=== PATIENT | female | born 1970 | race Two or more races ===

== ENCOUNTER 2020-05-25 05:31 | Emergency (ER) | payer MEDICAID ==
[~2020-05-25] VITALS: Ht 157.5 cm; Wt 147.4 kg
[2020-05-25 05:46] VITALS: BP 176/74
--- NOTE | 2020-05-25 07:26 | Diagnostic Imaging Report ---
EXAM: CT Head Without Intravenous Contrast CLINICAL HISTORY: TRAUMA TECHNIQUE: Axial computed tomography images of the head/brain without intravenous contrast. CTDI is 53.40 mGy and DLP is 1072.20 mGy-cm. One or more of the following dose reduction techniques were used: automated exposure control, adjustment of the mA and/or kV according to patient size, use of iterative reconstruction technique. COMPARISON: No relevant prior studies available. FINDINGS: Brain: No acute hemorrhage or mass effect. A few punctate calcifications in the basal ganglia and right periventricular white matter, likely chronic. Ventricles: Unremarkable. No ventriculomegaly. Bones/joints: Unremarkable. No acute fracture. Soft tissues: Soft tissue laceration/injury in the right supraorbital region. Sinuses: Mild mucosal thickening in the right ethmoid sinus. Mastoid air cells: Unremarkable as visualized. No mastoid effusion. IMPRESSION: 1. No acute intracranial abnormality. 2. Soft tissue laceration in the right supraorbital region
--- NOTE | 2020-05-25 07:34 | Emergency Room Report ---
History of Present Illness General Chief Complaint: Laceration Source: Patient Present Illness HPI Disclaimer: Please note that this report is being documented using [employer] technology. This can lead to erroneous entry secondary to incorrect interpretation by the dictating instrument. HPI: 49-year-old female presents for evaluation of facial laceration. Patient slipped going down the stairs hitting her head on a metal railing. Laceration over the right side of the face going down the eyebrow. Denies loss conscious, seizure. Does not take blood thinning medications. No other injury sustained. No other complaints at this time. Cannot recall last tetanus. 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 6 centimeter linear laceration vertically oriented over the right eyebrow extending the forehead and over the upper lid. No entrapment. Full extraocular movements. No proptosis or exophthalmos. Mild bruising. No debris visualized. Resp: Normal work of breathing Skin: Intact. No abrasions, laceration or rash over the exposed skin MSK: Normal tone and bulk. Moving all extremities. No obvious deformity. Neuro: Awake and alert. Mentating appropriately Procedures Laceration/Wound Repair Laceration/Wound Repair : Consent: Verbal Wound Location: face Wound's Depth, Shape: superficial, linear Wound Explored: clean Anesthesia: 1% Lidocaine Volume Anesthetic (ccs): 6 Wound Debrided: None Wound Repaired With: sutures Suture Size/Type: 5:0 Number of Sutures: 7 Layer Closure?: Yes Deep Layer Suture Size/Type: 4:0, other - Vicryl Number Deep Layer Sutures: 2 Sterile Dressing Applied?: Yes Patient Tolerated: Well Complications: None Medical Decision Making Diagnostic Impression: Primary Impression: Facial laceration Additional Impression: Head injury ER Course 49-year-old female presents for evaluation of facial laceration after a fall. CT head was performed shows no evidence of intracranial injury or foreign bodies. Wound was irrigated, sutured and tetanus was updated. Patient will follow-up with PMD or return for suture removal next week. Discussed reasons to return to the ED. She understands and agrees with treatment plan. CT/MRI/US Diagnostic Results CT/MRI/US Diagnostic Results : Impression IMPRESSION: 1. No acute intracranial abnormality. 2. Soft tissue laceration in the right supraorbital region Dictated By: Erin Scott MD Electronically Signed By:Erin Scott MD Signed Date/Time05/25/20 0722 CC: Shawn Samano MD Last Vital Signs Date Time Temp Pulse Resp B/P (MAP) Pulse Ox O2 Delivery O2 Flow Rate FiO2 05/25/20 05:46 98.8 89 22 176/74 94 Room Air Disposition: HOME, SELF-CARE Condition: Stable Patient Instructions: Laceration Care, Adult Additional Instructions: Return in 1 week or see your primary doctor for removal of stitches. Please follow-up with your primary care doctor in the next 1 to 3 days to discuss this emergency department visit and for reevaluation. If you have any new or worsening symptoms please return to the emergency department for reevaluation. Please note that this report is being documented using [place] [employer] technology. This can lead to erroneous entry secondary to incorrect interpretation by the dictating instrument. Brady Shen MD May 25, 2020 07:34
[2020-05-25] MEDS ORDERED: Tetanus/Diptheria/Pertussis IM ONE (07:45)
[2020-05-25 08:01] VITALS: BP 170/71
== END 2020-05-25 08:01 | disposition home or self-care (01) ==
LOC: EMR 05:50
DX: S01.111A Laceration without foreign body of right eyelid and periocular area, initial encounter (principal); W10.9XXA Fall (on) (from) unspecified stairs and steps, initial encounter; Y93.01 Activity, walking, marching and hiking; Y92.9 Unspecified place or not applicable
CPT/HCPCS: 12014; 70450; 90471; 90715; Z7502; 99284

== ENCOUNTER 2020-05-31 10:32 | Emergency (ER) | payer MEDICAID ==
[~2020-05-31] VITALS: Ht 157.5 cm; Wt 176.9 kg
[2020-05-31 10:42] VITALS: BP 137/82
[2020-05-31 11:09] VITALS: BP 137/82
--- NOTE | 2020-06-02 17:41 | Emergency Room Report ---
History of Present Illness General Chief Complaint: Wound Recheck/Suture Removal Source: Patient Present Illness HPI 49-year-old female presents for suture removal. Laceration to the right above the right eye including part of the eyelid. Happened 1 week ago. Repaired in ED. Is here for suture removal. States she feels fine. Denies any pain. No other aggravating relieving factors. 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 Patient History Past Medical History: none Past Surgical History: none Pertinent Family History: none Social History: Denies: smoking, alcohol use, drug use Now: No Immunizations: UTD Reviewed Nursing Documentation: PMH: Agreed; PSxH: Agreed Nursing Documentation-PMH Past Medical History: No Stated History Review of Systems All Other Systems: negative except mentioned in HPI Physical Exam Vital Signs Date Time Temp Pulse Resp B/P (MAP) Pulse Ox O2 Delivery O2 Flow Rate FiO2 05/31/20 10:35 98.4 78 18 137/82 (100) 94 Room Air Sp02 EP Interpretation: reviewed, normal General Appearance: no apparent distress, alert, GCS 15, non-toxic, obese Head: normocephalic, atraumatic Eyes: bilateral eye normal inspection, bilateral eye PERRL ENT: hearing grossly normal, normal pharynx, no angioedema, normal voice Neck: full range of motion, supple/symm/no masses Respiratory: chest non-tender, lungs clear, normal breath sounds, speaking full sentences Cardiovascular #1: regular rate, rhythm, no edema Cardiovascular #2: 2+ carotid (R), 2+ carotid (L), 2+ radial (R), 2+ radial (L), 2+ dorsalis pedis (R), 2+ dorsalis pedis (L) Gastrointestinal: normal bowel sounds, non tender, soft, non-distended, no guarding, no rebound Rectal: deferred Genitourinary: normal inspection, no CVA tenderness Musculoskeletal: back normal, normal range of motion, gait/station normal, non- tender Neurologic: alert, motor strength/tone normal, oriented x3, sensory intact, responsive, speech normal Psychiatric: judgement/insight normal, memory normal, mood/affect normal, no suicidal/homicidal ideation Reflexes: 3+ bicep (R), 3+ bicep (L), 3+ tricep (R), 3+ tricep (L), 3+ knee (R), 3+ knee (L) Skin: laceration - Healing laceration above right eye including part of eyelid. Clean/dry/intact. Sutures in place. Lymphatic: no adenopathy Medical Decision Making Diagnostic Impression: Primary Impression: Encounter for wound re-check Additional Impression: Encounter for removal of sutures ER Course Patient presents to the emergency department today for suture removal. patient's wound appears well-healed, and sutures are ready to be removed today. Using sterile technique the sutures were removed patient tolerated procedure well without any difficulty. Patient was given advice in how to care for the wound patient is advised followup with his private care doctor in 2-3 days and return to emergency room for any worsening conditions as needed Last Vital Signs Date Time Temp Pulse Resp B/P (MAP) Pulse Ox O2 Delivery O2 Flow Rate FiO2 05/31/20 11:09 98.4 78 18 137/82 94 Room Air Status: improved Disposition: HOME, SELF-CARE Condition: Stable Referrals: NON PHYSICIAN (PCP) Deshaun Thomas [facility] Patient Instructions: Wound Check, Suture Removal, Care After Rafael Watts MD Jun 02, 2020 17:41
== END 2020-05-31 11:09 | disposition home or self-care (01) ==
LOC: EMR 10:55
DX: Z48.02 Encounter for removal of sutures (principal); E66.9 Obesity, unspecified; S01.111A Laceration without foreign body of right eyelid and periocular area, initial encounter; X58.XXXA Exposure to other specified factors, initial encounter; Y92.9 Unspecified place or not applicable
CPT/HCPCS: 99281

== ENCOUNTER 2020-06-15 06:22 | Emergency (ER) | payer MEDICAID ==
[~2020-06-15] VITALS: Ht 149.9 cm; Wt 117.9 kg
[2020-06-15] MEDS ORDERED: Tylenol #3 tab (300mg/30mg) ORAL ONE (06:45)
--- NOTE | 2020-06-15 07:00 | NUR ---
ED Nurse Note: Recieved pt walk in from home, here with c/o left knee pain at 10/10, aching and constant, pt denies injury to area and states motrin not effective for pain, pt ambulating with cane, denies chest pain, sob or any other complaints or discomforts, pt is english speaking, translation assistance from [employer], will resume care as ordered and give report to on coming am nurse.
--- NOTE | 2020-06-15 08:01 | Emergency Room Report ---
History of Present Illness General Chief Complaint: Pain Source: Patient Present Illness HPI This patient states that yesterday morning she woke up with pain in her left knee. She denies trauma. She denies recent illness. She denies fever or chills. She denies previous pain or injury. She states the pain is much worse when bearing weight. She has no other pain. She denies hip pain or ankle pain. She has used ibuprofen without relief. She has no other complaints. 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 Patient History Past Medical History: none, see triage record Social History: Denies: smoking, alcohol use, drug use Reviewed Nursing Documentation: PMH: Agreed; PSxH: Agreed Nursing Documentation-PMH Past Medical History: No Stated History Review of Systems All Other Systems: negative except mentioned in HPI Physical Exam Vital Signs Date Time Temp Pulse Resp B/P (MAP) Pulse Ox O2 Delivery O2 Flow Rate FiO2 06/15/20 06:25 98.8 85 16 134/62 (86) 97 Room Air Sp02 EP Interpretation: reviewed, normal General Appearance: no apparent distress, alert, GCS 15, non-toxic, obese Head: normocephalic, atraumatic Eyes: bilateral eye normal inspection ENT: hearing grossly normal, normal pharynx, no angioedema, normal voice Neck: normal inspection, full range of motion Respiratory: no respiratory distress, no retraction, no accessory muscle use, speaking full sentences Rectal: deferred Musculoskeletal: back normal, normal range of motion, tender - L. knee: +pain w/ ROM, No erythema,+ mild joint effusion (exam limited secondary to obesity), +TTP along L. calve. Neurologic: alert, motor strength/tone normal, oriented x3, sensory intact, responsive, speech normal Psychiatric: judgement/insight normal, memory normal, mood/affect normal, no suicidal/homicidal ideation Medical Decision Making Diagnostic Impression: Primary Impression: Effusion of knee joint, left Additional Impression: Knee sprain ER Course This patient has a left knee effusion. This is likely the etiology of her pain. Possibly this was related to a knee sprain while she was sleeping. I do not suspect infection based on physical exam. Specifically, there is no warmth or erythema. The patient has no systemic symptoms. Patient is also obese and there may be an element of osteoarthritis and overuse of this knee joint. An Cabrera wrap was placed for compression and the patient will be referred to orthopedics for further evaluation and treatment. The patient already has a cane that she has been using to walk. I feel that this is best as I feel that this patient would be unable to use crutches based on her body habitus. I did obtain a knee x-ray which showed no acute findings. The patient had tenderness to palpation in her left calf, so I did obtain an ultrasound of the left lower extremity to assess for DVT. There was no evidence of DVT, but there was identification of a joint effusion. At this time, I did not identify an emerg ency medical condition. The patient is given close return precautions and follow-up instructions. Other X-Ray Diagnostic Results Other X-Ray Diagnostic Results : X-Ray ordered: L. knee xray # of Views/Limited Vs Complete: Complete Indication: Pain EP Interpretation: Yes Interpretation: no dislocation, no fractures Impression: No acute disease Electronically Signed by: Judith Pope DO CT/MRI/US Diagnostic Results CT/MRI/US Diagnostic Results : Imaging Test Ordered: US Venous Doppler LLE Impression No DVT Last Vital Signs Date Time Temp Pulse Resp B/P (MAP) Pulse Ox O2 Delivery O2 Flow Rate FiO2 06/15/20 06:25 98.8 85 16 134/62 (86) 97 Room Air Status: improved Disposition: HOME, SELF-CARE Condition: Improved Referrals: [facility],REFERRING (PCP) Judith Pope DO Jun 15, 2020 08:01
[2020-06-15 09:16] VITALS: BP 130/80
--- NOTE | 2020-06-15 09:16 | NUR ---
JOAQUÍN WRAP TO LEFT KNEE APPLIED
[2020-06-15] MEDS ORDERED: IBUPROFEN600 M1 ORAL (09:20)
[2020-06-15] MEDS ORDERED: ACETAMINOPHEN-1 EAC1 ORAL (09:20)
[2020-06-15 09:26] VITALS: BP 130/80
--- NOTE | 2020-06-15 09:28 | NUR ---
ER DISCHARGE NOTE: Patient is cleared to be discharged per ERMD, pt is aox4, on room air, with stable vital signs. pt was given dc and prescription instructions, pt was able to verbalize understanding, pt id band and iv site removed without complications. pt is able to ambulate with steady gait. pt took all belongings.
--- NOTE | 2020-06-15 15:21 | Diagnostic Imaging Report ---
Indication: Left knee pain Technique: Grayscale and duplex images of the left lower extremity veins Comparison: None Findings: Exam is somewhat technically limited due to patient body habitus. On the left, grayscale and duplex images demonstrate no evidence of intraluminal thrombus. Normal phasic Doppler waveforms, demonstrating normal augmentation response and no evidence of valvular insufficiency. Greater saphenous vein(s) and tibial veins are patent. Normal compressibility. Incidentally noted is a left knee joint effusion Impression: Negative for evidence of lower extremity deep venous thrombosis on the left Incidental finding of left knee joint effusion
--- NOTE | 2020-06-15 15:23 | Diagnostic Imaging Report ---
Indications: Left knee pain Technique: Three views of the knee Comparison: None Findings: No acute fractures. No dislocations. There is mild narrowing of the medial joint compartment.. No radiopaque foreign body. Normal mineralization. There is probably a joint effusion. There are medial and lateral osteophytes Impression: No acute bony trauma Suspect joint effusion Degenerative changes, as described
== END 2020-06-15 09:28 | disposition home or self-care (01) ==
LOC: EMR 06:45
DX: M25.462 Effusion, left knee (principal); S83.92XA Sprain of unspecified site of left knee, initial encounter; X58.XXXA Exposure to other specified factors, initial encounter; Y93.9 Activity, unspecified; Y92.9 Unspecified place or not applicable
CPT/HCPCS: 73562; 93971; Z7502; 99284